=== PATIENT | female | born 1965 | race Caucasian/White ===

== ENCOUNTER 2020-06-28 11:12 | Emergency (ER) | payer OTHER ==
[~2020-06-28] VITALS: Ht 167.6 cm; Wt 81.6 kg
[2020-06-28] MEDS ORDERED: [UNRECOGNIZED DRUG - OTHER] (11:30)
[2020-06-28] MEDS ORDERED: ZITHROMAX500 MG PO (18:13)
[2020-06-28] MEDS ORDERED: PEPCID AC20 MG PO (18:13)
[2020-06-28] MEDS ORDERED: DECADRON6 MG PO (18:13)
[2020-06-28] MEDS ORDERED: SYMBICORT 16010.2 GM IH (18:13)
== END 2020-06-28 19:40 | disposition home or self-care (01) ==
LOC: ER 11:12
DX: U07.1 COVID-19 (principal); R50.9 Fever, unspecified

== ENCOUNTER 2020-07-05 09:33 | Emergency (ER) | payer OTHER ==
[~2020-07-05] VITALS: Ht 167.6 cm; Wt 81.6 kg
[~2020-07-05 09:33] MED LIST: DECADRON6 MG PO; PEPCID AC20 MG PO; SYMBICORT 16010.2 GM IH; ZITHROMAX500 MG PO; [UNRECOGNIZED DRUG - OTHER]
== END 2020-07-05 18:24 | disposition home or self-care (01) ==
LOC: ER 09:33
DX: U07.1 COVID-19 (principal); R63.0 Anorexia

== ENCOUNTER 2023-07-01 12:50 | Emergency (ER) | payer OTHER ==
[~2023-07-01] VITALS: Ht 167.6 cm; Wt 86.2 kg
[2023-07-01] MEDS ORDERED: CANDESARTAN CIL32 MG (13:52)
[2023-07-01] MEDS ORDERED: HYDROCHLOROTHIA25 MG (13:52)
[2023-07-01] MEDS ORDERED: AMLODIPINE BESYL5 MG (13:52)
[2023-07-01 15:46] LABS: HEMATOCRIT 41.3 % (36.0-45.00); HEMOGLOBIN 13.5 g/dL (12.0-15.00); MEAN CELL VOLUME 90.1 fL (80.00-100.00); MEAN CORPUSCULAR HEMOGLOBIN 29.5 pg (27.00-32.0); MEAN CORPUSCULAR HGB CONC 32.8 g/dl (32.0-36.0); PLATELET COUNT 325 K/uL (150-450); RED BLOOD COUNT 4.58 M/uL (4.00-6.00); RED CELL DISTRIBUTION WIDTH 13.8 % (11.5-14.5)
[2023-07-01] MEDS ORDERED: DICLOFENAC SODI75 MG PO (15:52)
[2023-07-01 16:06] LABS: PROTHROMBIN TIME 10.5 SECONDS (9.0-11.5)
[2023-07-01 16:10] LABS: D DIMER 0.83 MG/L
== END 2023-07-01 15:57 | disposition home or self-care (01) ==
LOC: ER 12:50
PROVIDERS: General Practice
DX: M79.605 Pain in left leg (principal)

== ENCOUNTER 2023-09-25 16:31 | Emergency (ER) | payer OTHER ==
[~2023-09-25] VITALS: Ht 167.6 cm; Wt 82.6 kg
[~2023-09-25 16:31] MED LIST changes: +AMLODIPINE BESYL5 MG; +CANDESARTAN CIL32 MG; +DICLOFENAC SODI75 MG PO; +HYDROCHLOROTHIA25 MG
== END 2023-09-25 19:35 | disposition home or self-care (01) ==
LOC: ER 16:32
DX: H10.10 Acute atopic conjunctivitis, unspecified eye (principal)

== ENCOUNTER 2025-01-31 17:41 | Emergency (ER) | payer OTHER ==
[~2025-01-31] VITALS: Ht 167.6 cm; Wt 81.6 kg
[2025-01-31 18:37] VITALS: BP 117/74; O2SAT 99
[2025-01-31 19:12] LABS: HEMATOCRIT 37.5 % (36.0-45.00); HEMOGLOBIN 12.6 g/dL (12.0-15.00); MEAN CELL VOLUME 89.3 fL (80.00-100.00); MEAN CORPUSCULAR HEMOGLOBIN 29.9 pg (27.00-32.0); MEAN CORPUSCULAR HGB CONC 33.5 g/dl (32.0-36.0); PLATELET COUNT 310 K/uL (150-450); RED CELL DISTRIBUTION WIDTH 13.8 % (11.5-14.5)
[2025-01-31 19:42] LABS: ALBUMIN 3.7 gm/dL (3.4-5.0); BILIRUBIN TOTAL 0.26 mg/dL (0.3-1.2); CALCIUM 9.2 mg/dL (8.5-10.1); CREATININE SERUM 0.84 mg/dL (0.55-1.02); GFR 69.88; POTASSIUM 3.42 mEq/L (3.5-5.1); TOTAL PROTEIN 7.7 gm/dL (6.4-8.2)
== END 2025-01-31 20:30 | disposition home or self-care (01) ==
LOC: ER 18:02
PROVIDERS: General Practice
DX: R00.2 Palpitations (principal)

== ENCOUNTER 2025-07-13 23:47 | Emergency (ER) | payer OTHER ==
[~2025-07-13] VITALS: Ht 167.6 cm; Wt 82.6 kg
[2025-07-14] MEDS ORDERED: ECOTRIN81 MG (00:03)
[2025-07-14] MEDS ORDERED: CLONIDINE HCL 0.1 MG TABLET PO ONE (01:17)
[2025-07-14 01:31] LABS: BASO % 0.9 % (0.1-1.2); EOS # 0.39 (0.04-0.54); EOS % 6.8 % (0.7-7.0); LYMPH # 2.81 (1.18-3.74); LYMPH % 49.2 % (19.3-53.1); MEAN PLATELET VOLUME 10.00 fl (9.4-12.4); MONO # 0.54 (0.24-0.82); MONO % 9.5 % (4.7-12.5); NEUT # 1.91 (1.56-6.13); NEUT % 33.4 % (34.0-71.1); RED CELL DISTRIBUTION WIDTH 13.8 % (11.6-14.4)
[2025-07-14 01:46] LABS: ALT/SGPT 49.0 U/L (12-78); AST/SGOT 36.0 U/L (15-37); BILIRUBIN TOTAL 0.23 mg/dL (0.3-1.2); BUN CREA RATIO 24.0 (7.0-25.0); CREATININE SERUM 0.87 mg/dL (0.55-1.02); GLOBULINA 4.0 G/DL (2.4-3.5); GLUCOSE FASTING 105.0 mg/dL (65-100); OSMOLALITY SERUM 283.0 MOSM/KG (275-295)
[2025-07-14 01:54] LABS: GFR 67.11
== END 2025-07-14 | disposition home or self-care (01) ==
LOC: ER 23:47
PROVIDERS: General Practice
DX: J06.9 Acute upper respiratory infection, unspecified (principal)